=== PATIENT | female | born 1970 ===

== ENCOUNTER 2024-07-20 09:33 | Emergency (ER) | payer BC, SELFPAY ==
--- NOTE | ~2024-07-20 | XR_ITS ---
EXAMINATION: XR CHEST CLINICAL INFORMATION: Cough COMPARISON: None available. TECHNIQUE: 2 views of the chest were obtained. FINDINGS: No significant abnormality is noted involving the heart, lungs, mediastinum, bony thorax or soft tissues. XR/XR chest 2V IMPRESSION: Unremarkable examination. Electronically signed by: Tomas Gutierrez MD 07/20/2024 12:58 PM EDT RP
[2024-07-20 09:46] VITALS: BP 120/61; BP 123/44; PULSE 89; PULSE 91; RESP 20; TEMP 36.9; O2SAT 100; O2SAT 98; BMI 27.1
--- NOTE | 2024-07-20 10:26 | ED.GENADULT ---
HPI - General Adult General Chief complaint: General Medical Stated complaint: WEAK,CHILLS PER EMS Time Seen by Provider: 07/20/24 09:44 Source: patient Mode of arrival: ambulatory Limitations: no limitations History of Present Illness HPI narrative: 53-year-old female presents emergency department with her . Patient states the past few days she has felt more tired than usual last night she had some chills and extreme thirst. States she tried to go to work today and was too cold had some shaking chills. Patient did not take anything and came to the ER. She states she was initially vaccinated for COVID and flu but has not got shot this year she denies any fevers chills falls injuries chest pain nausea vomiting or diarrhea. Related Data Allergies Allergy/AdvReac Type Severity Reaction Status Date / Time No Known Allergies Allergy Verified 07/20/24 09:48 Review of Systems Review of Systems: Review of systems: General: chills Patient denies any fever recent illness or falls Musculoskeletal: Denies back pain or body aches or other injuries HEENT: denies headache, runny nose, ear pain Respiratory: slight cough denies shortness of breath, Cardiovascular: no chest pain or palpitations : denies dysuria, frequency Abdomen: no nausea vomiting denies abdominal pain Extremities: no swelling, no pain Skin: no diaphoresis Yes all other systems are reviewed and are negative PMFSH Social History Social History Smoked in Last 30 Days: No Use of substances other than those prescribed or required for medical reasons: No Advance Directives: No Advance Directives Information Provided: No Do you have a plan to hurt others: No Plan Patient : No Physical Exam ED Vital Signs: Vital Signs - 24 hr 07/20/24 09:46 07/20/24 14:27 Temperature 98.4 F 97.5 F Pulse Rate 89 63 Respiratory Rate 20 14 Blood Pressure 123/44 L 92/52 L Pulse Oximetry 100 100 Oxygen Delivery Method Room Air Room Air BMI result Body Mass Index 27.1 General: Well-appearing well-nourished in no signs of distress HEENT: Normocephalic atraumatic Neck: No signs of JVD, no masses no tenderness or lymphadenopathy Cardiovascular: Regular rate and rhythm Respiratory: Clear to auscultation bilaterally Abdomen: Soft nontender no masses Extremities: Normal pedal pulses no signs of edema Skin: Dry warm no rashes Back: No tenderness full ROM Course Course Course Narrative: X-ray and labs all normal patient did feel better after fluids urine was delayed the friend came back normal I feel comfortable discharging the patient home. Medications Administered Discontinued Medications Generic Name Dose Route Start Last Admin Trade Name Alexia PRN Reason Stop Dose Admin Acetaminophen 650 mg 07/20/24 10:25 07/20/24 11:04 Acetaminophen 325 Mg Tablet PO 07/20/24 10:26 Not Given ONCE ONE Sodium Chloride 1,000 mls @ 999 mls/hr 07/20/24 10:30 07/20/24 12:13 Ns IV 07/20/24 11:30 Infused .Q1H1M ENDY Infusion Ibuprofen 400 mg 07/20/24 10:25 07/20/24 10:49 Ibuprofen 400 Mg Tablet PO 07/20/24 10:26 400 mg ONCE ONE Administration Medical Decision Making Medical Decision Making [facility] Narrative: I will treat the patient with Tylenol and ibuprofen we will give some fluids check labs COVID flu and RSV and a chest x-ray. Differential Diagnosis Differential Diagnoses: The differential diagnosis associated with the presentation includes Anemia weakness dehydration COVID flu RSV Lab Data 07/20/24 10:56 07/20/24 10:56 Labs: Lab Results 07/20/24 07/20/24 Range/Units 10:56 14:04 WBC 13.4 H (4.8-10.8) X10*3/uL RBC 4.70 (4.20-5.50) X10*6/uL Hgb 13.1 (12.0-16.0) g/dl Hct 40.6 (37.0-47.0) % MCV 86.4 (80.0-98.0) fL MCH 27.9 (27.0-33.0) pg MCHC 32.3 (31.0-35.0) g/dl RDW 13.3 (11.0-16.0) % Plt Count 235 (160-400) X10*3/uL MPV 9.3 L (9.4-12.3) fL Immature Gran % (Auto) 0.3 (0.0-0.4) % Neut % (Auto) 90.7 H (45-73) % Lymph % (Auto) 4.0 L (20-40) % [place] % (Auto) 4.6 (2-11) % Eos % (Auto) 0.1 (0-4) % Baso % (Auto) 0.3 (0-2) % Lymph # (Auto) 0.5 L (1.2-4.9) X10*3/uL [place] # (Auto) 0.6 (0.1-1.2) X10*3/uL Eos # (Auto) 0.0 (0.0-0.4) X10*3/uL Baso # (Auto) 0.0 (0.0-0.2) X10*3/uL Abs Immat Gran (auto) 0.04 H (0.00-0.03) X10*3/uL Absolute Neuts (auto) 12.1 H (2.0-8.3) x10*3/uL Absolute Nucleated RBC 0.000 (0.0-0.012) X10*3/uL Nucleated RBC % (auto) 0.0 (0.0-0.2) /100WBC Smear Tech's Comments VERIFIED Sodium 141 (135-145) mmol/L Potassium 4.2 (3.3-5.1) mmol/L Chloride 108 (96-108) mmol/L Carbon Dioxide 25 (22-29) mmol/L Anion Gap 12 (12-20) BUN 13 (9-16) mg/dL Creatinine 0.70 (0.5-1.4) mg/dL Estim Creat Clear Calc 89.2 Estimated GFR > 60 Random Glucose 105 (60-115) mg/dL Calcium 9.5 (8.4-10.2) mg/dL Urine Color Yellow Urine Appearance Clear Urine pH 7.0 (5.0-9.0) Ur Specific [place] <= 1.005 (1.005-1.025) Urine Protein Negative (Neg-Trace) mg/dL Urine Glucose (UA) Negative (Negative) mg/dL Urine Ketones Negative (Negative) mg/dL Urine Blood Negative (Negative) Urine Nitrite Negative (Negative) Ur Leukocyte Esterase Negative (Negative) Influenza Type A (PCR) NEGATIVE (Negative) Influenza Type B (PCR) NEGATIVE (Negative) RSV RNA Qual (PCR) NEGATIVE (Negative) SARS-CoV-2 RNA (RT-PCR) NEGATIVE (Negative) Discharge Plan Discharge Clinical Impression: Chills Patient Disposition: Home, Self-Care Instructions: Weakness (ED) Additional Instructions: You were seen today for weakness and chills. You had x-ray labs and swabs for COVID flu and RSV as well he has a urine sample which were all negative. Please call follow up with your doctor if you have any other concerns please return to the emergency department. Print Language: Lithuanian
[2024-07-20] MEDS: Ibuprofen 400 MG TABLET PO (10:49)
[2024-07-20] MEDS: 0.9 % Sodium Chloride 1,000 ML 999 ML IV (10:49)
[2024-07-20 11:05] LABS: Basophils Percent Auto 0.3 % (0-2); Eosinophils Percent Auto 0.1 % (0-4); Hematocrit 40.6 % (37.0-47.0); Hemoglobin 13.1 g/dl (12.0-16.0); Imm Gran Abs Auto 0.04 X10*3/uL (0.00-0.03); Imm Gran Pct Auto 0.3 % (0.0-0.4); Lymphocytes Absolute Auto 0.5 X10*3/uL (1.2-4.9); MANUAL DIFF FLAG SCAN; Mean Corpuscular HGB Conc 32.3 g/dl (31.0-35.0); Mean Corpuscular Hemoglobin 27.9 pg (27.0-33.0); Mean Corpuscular Volume 86.4 fL (80.0-98.0); Mean Platelet Volume 9.3 fL (9.4-12.3); Monocytes Absolute Auto 0.6 X10*3/uL (0.1-1.2); Monocytes Percent Auto 4.6 % (2-11); Neutrophils Absolute Auto 12.1 x10*3/uL (2.0-8.3); Neutrophils Percent Auto 90.7 % (45-73); Platelet Count 235 X10*3/uL (160-400); Red Cell Distribution Width 13.3 % (11.0-16.0); SCAN SMEAR FLAG 1; White Blood Count 13.4 X10*3/uL (4.8-10.8)
[2024-07-20 11:17] LABS: Anion Gap 12 (12-20); Blood Urea Nitrogen 13 mg/dL (9-16); Calcium 9.5 mg/dL (8.4-10.2); Carbon Dioxide 25 mmol/L (22-29); Chloride 108 mmol/L (96-108); Creatinine Clr Calc Pharmacy 89.2; Estimated Glomerular Filt Rate > 60; Glucose Random 105 mg/dL (60-115); Potassium 4.2 mmol/L (3.3-5.1); Sodium 141 mmol/L (135-145)
[2024-07-20 11:34] LABS: SLIDE REVIEW VERIFIED
[2024-07-20 11:53] LABS: Influenza A PCR NEGATIVE (Negative); Influenza B PCR NEGATIVE (Negative); Resp Syncy Virus RNA Qual PCR NEGATIVE (Negative); SARS COV2 PCR INHOUSE NEGATIVE (Negative)
[2024-07-20 14:18] LABS: Appearance Urine Clear; Color Urine Yellow; Glucose Urine UA Negative (Negative); Leukocyte Esterase Urine Negative (Negative); Nitrite Urine Negative (Negative); Specific Gravity - Urine <= 1.005 (1.005-1.025); Urine Blood Negative (Negative); Urine Ketones Negative (Negative); Urine Protein Negative (Neg-Trace)
[2024-07-20 14:27] VITALS: BP 92/52; PULSE 63; RESP 14; TEMP 36.4; O2SAT 100
[2024-07-20 14:57] VITALS: BP 110/56; PULSE 60; RESP 18; TEMP 36.8; O2SAT 98
== END 2024-07-20 14:58 | disposition home or self-care (01) ==
PROVIDERS: Emergency Provider Student in an Organized Health Care Education/Training Program
DX: R53.1 Weakness (principal); R05.9 Cough, unspecified; Z79.899 Other long term (current) drug therapy; Z03.818 Encounter for observation for suspected exposure to other biological agents ruled out
CPT/HCPCS: 0241U; 71046; 80048; 81003; 85025; 96360; 99284